=== PATIENT | male | born 1950 | race Caucasian/White ===

== ENCOUNTER 2016-10-23 11:15 | Emergency (ER) | payer OTHER ==
[2016-10-23 12:30] VITALS: RESP 14
--- NOTE | 2016-10-23 13:53 | EDPHY ---
H & P Smoking Status: Never smoked Time Seen by Provider: 10/23/16 12:44 HPI/ROS: This is a 66-year-old male presenting to the emergency department complaining of constipation. Patient states his last bowel movement was 2 days small hard stool, also reports not urinating as much but does have an enlarged prostate. Normal appetite no abdominal pain no nausea no vomiting, patient states he did finish his Z-Johnny about 10 days ago for bronchitis, but no other dietary changes. Denies any other complaints REVIEW OF SYSTEMS: Constitutional: No fever no chills, no changes in PO intake Eyes: No blurred vision Respiratory: No cough no shortness of breath Cardiac: No chest pain Gastrointestinal: No abdominal pain no nausea no vomiting positive for constipation Genitourinary: Difficulty urinating due to enlarged prostate Musculoskeletal: No joint pain Skin: No rash Neurological: No headache or dizziness (Jennifer Torres) Physical Exam: CONSTITUTIONAL: patient appeared well nourished, non-ill appearing and normally developed. No acute distress. Vital signs as documented. HEENT: Normocephalic atraumatic. Oropharynx normal NECK: Supple,FROM without pain RESP: Non-labored resp effort, airway patent, CTAB CARDIAC: RRR w/o murmur, last. Normal S1/S2 GI: Abd soft nontender to palpate, no distension no discoloration NEURO: AAOx3 , ambulatory without gait disturbance EXTREMITIES: FROM without pain or difficulty. Positive cms intact SKIN: Warm and dry no rash PSYCH: Normal affect, calm, no distress, acting age appropriate (Jennifer Torres) Constitutional: Initial Vital Signs Temperature (C) 36.6 C 10/23/16 11:20 Heart Rate 56 L 10/23/16 11:20 Respiratory Rate 16 10/23/16 11:20 Blood Pressure 153/73 H 10/23/16 11:20 O2 Sat (%) 96 10/23/16 11:20 O2 Delivery Mode Room Air Allergies/Adverse Reactions: No Known Allergies Allergy (Unverified 10/23/16 11:37) Home Medications: Medication Instructions Recorded NK [No Known Home Meds] 10/23/16 Medical Decision Making - Diagnostics Imaging: History: Constipation. Findings: Moderate retained stool is present throughout the colon. Small bowel demonstrates normal gas pattern. Surgical rings from bilateral herniorrhaphy are present overlying the pelvis. No free air or abnormal calculus. Impression: Moderate constipation. Dictated By: Alfonso Stockton MD (Jennifer Torres) ED Course/Re-evaluation: Discussed plan of care with patient: Abdominal x-ray ordered. Shows moderate constipation. Mag citrate given to patient 1620: Re-evaluation patient had a large bowel movement feeling a lot better no nausea vomiting. 1630: Discharge home--->, stable discussed discharge instructions patient (BrianJennifer) Differential Diagnosis: Differential diagnosis considered but not limited to small bowel obstruction, gastroenteritis colonic stricture (Jennifer Torres) Other Provider: This patient was evaluated and managed by the nurse practitioner. I have reviewed the chart and agree with the findings and plan of care as documented. ( Missy Brown) - Data Points Medications Given: Discontinued Medications Magnesium Citrate (Magnesium Citrate) 300 ml PO ONCE ONE Stop: 10/23/16 14:05 Last Admin: 10/23/16 14:10 Dose: 300 ml Departure - Departure Disposition: Home, Routine, Self-Care Clinical Impression: Constipation Condition: Good Instructions: Constipation (ED), High Fiber Diet (ED) Additional Instructions: 1. Increased water intake, prune juice and apple juice may be beneficial 2. Increase high-fiber diet, you can also take Metamucil daily 3. Follow up with your primary care provider next week as needed. Any symptoms worsen abdominal pain unable to have a bowel movement return emergency department Referrals: Timothy Gaston MD [Primary Care Provider] - As per Instructions
[2016-10-23] MEDS ORDERED: MAGNESIUM CITRATE 300 ML BOTTLE PO ONE (14:04)
[2016-10-23] MEDS ORDERED: MAGNESIUM CITRATE 300 ML BOTTLE ONE (14:21)
[2016-10-23 15:29] VITALS: BP 127/78; PULSE 72; TEMP 97.5; O2SAT 97
== END 2016-10-23 15:38 | disposition home or self-care (01) ==
DX: K59.00 Constipation, unspecified (principal)

== ENCOUNTER → 2017-03-12 | Outpatient (CLI) | payer OTHER | LOC: FIMAGING 09:56 | PROVIDERS: ATTEND Orthopaedic Surgery Orthopaedic Surgery of the Spine | DX: Z13.820 Encounter for screening for osteoporosis (principal); M85.80 Other specified disorders of bone density and structure, unspecified site ==

== ENCOUNTER → 2018-03-18 | Outpatient (CLI) | payer OTHER, MEDICARE | LOC: FIMAGING 11:23 | PROVIDERS: ATTEND Internal Medicine | DX: Z13.820 Encounter for screening for osteoporosis (principal); M85.89 Other specified disorders of bone density and structure, multiple sites ==